=== PATIENT | male | born 1985 | race Caucasian/White ===

== ENCOUNTER 2021-10-29 10:15 | Emergency (ER) | payer BC ==
[~2021-10-29] VITALS: Ht 167.6 cm; Wt 77.1 kg
[2021-10-29] MEDS ORDERED: CITALOPRAM HBR30 MG PO (10:53)
[2021-10-29] MEDS ORDERED: OXAYDO5 M1 PO (17:11)
[2021-10-29] MEDS ORDERED: IBUP800 PO (17:11)
[2021-10-29] MEDS ORDERED: ONDA4ODT MM ×2 (17:11→17:24)
== END 2021-10-29 17:49 | disposition home or self-care (01) ==
LOC: ER 10:15
DX: S82.875A Nondisplaced pilon fracture of left tibia, initial encounter for closed fracture (principal); Z88.0 Allergy status to penicillin; X58.XXXA Exposure to other specified factors, initial encounter
CPT/HCPCS: 29105; 73590; 73610; 73700; 96374; 99284-25; A9270; J1170